=== PATIENT | female | born 1990 | race Two or more races ===

== ENCOUNTER 2016-11-30 19:15 | Emergency (ER) | payer OTHER ==
[~2016-11-30] VITALS: Ht 165.1 cm; Wt 81.6 kg
[2016-12-01 00:10] VITALS: BP 149/95
[2016-12-01] MEDS ORDERED: IBUPROFEN 400 MG TAB PO ONE (01:00)
== END 2016-12-01 00:47 | disposition home or self-care (01) ==
LOC: ER 19:26
DX: S60.031A Contusion of right middle finger without damage to nail, initial encounter (principal); W23.0XXA Caught, crushed, jammed, or pinched between moving objects, initial encounter; Y93.89 Activity, other specified; Y92.89 Other specified places as the place of occurrence of the external cause; Y99.0 Civilian activity done for income or pay
CPT/HCPCS: 29130; 73130

== ENCOUNTER 2019-04-28 19:24 | Emergency (ER) | payer MEDICAID, OTHER ==
[~2019-04-28] VITALS: Ht 167.6 cm; Wt 97.5 kg
[2019-04-28 21:14] LABS: Urine WBC None Seen /hpf (0 - 5)
[2019-04-28 21:23] LABS: Basophils # (auto) 0.1 uL; Basophils % (auto) 0.7 % (0.0-2.0); Eosinophils # (auto) 0.2 uL; Eosinophils % (auto) 1.4 % (0.0-7.0); Hemoglobin 13.6 g/dL (12.2-16.2); Lymphocytes # (auto) 2.3 uL; Lymphocytes % (auto) 21.1 % (10.0-50.0); Mean Corpuscular Hemoglobin 30.4 pg (28.0-32.0); Mean Corpuscular Hgb Conc. 33.9 g/dL (32.0-36.0); Mean Corpuscular Volume 89.7 fL (80.0-100.0); Monocytes # (auto) 0.6 uL; Neutrophils % (auto) 71.8 % (37.0-80.0); Platelet Count (auto) 315 10^3/uL (140-450); Red Blood Cells 4.46 10^6/uL (4.0-5.20); Red Cell Distribution Width 12.5 % (11.8-14.3); White Blood Cell 11.1 10^3/uL (4.4-10.8)
[2019-04-28 21:26] LABS: Urine Bacteria NONE SEEN /hpf (None Seen); Urine Blood Negative /uL (Negative); Urine Specific Gravity 1.023 (1.001-1.035)
[2019-04-28 21:36] LABS: Albumin 3.5 g/dL (3.4-5.0); BUN/Creatinine Ratio 15.4; Calcium 8.5 mg/dL (8.5-10.1); Potassium 3.4 mmol/L (3.5-5.1)
[2019-04-28 21:38] LABS: Alcohol, Urine < 3.0 mg/dL (0-5); Amphetamine Screen, Urine NEGATIVE (NEGATIVE); Barbiturate Scree,Urine NEGATIVE (NEGATIVE); Benzodiazephine Screen, Urine NEGATIVE (NEGATIVE); Cannabinoid Screen, Urine NEGATIVE (NEGATIVE); Cocaine Screen, Urine NEGATIVE (NEGATIVE); Opiate Scree,Urine NEGATIVE (NEGATIVE); Phencyclidine Screen, Urine NEGATIVE (NEGATIVE)
[2019-04-28 21:47] LABS: Bilirubin, Total 0.3 mg/dL (0.2-1.0); Total Protein 7.8 g/dL (6.4-8.2)
[2019-04-28] MEDS ORDERED: HYDROcodone-ACET 5/325MG TAB PO ONE (22:00)
[2019-04-28 22:22] VITALS: BP 139/85
== END 2019-04-28 22:25 | disposition home or self-care (01) ==
LOC: ER 19:24
DX: N20.0 Calculus of kidney (principal); K59.00 Constipation, unspecified
CPT/HCPCS: 36415; 74176; 80053; 80307; 81001; 81025; 82150; 83690; 85025

== ENCOUNTER 2021-06-17 19:20 | Emergency (ER) | payer BC, MEDICAID, OTHER ==
[~2021-06-17] VITALS: Ht 172.7 cm; Wt 90.7 kg
[2021-06-17] MEDS ORDERED: diazePAM 5 MG TAB PO ONE (21:00)
[2021-06-17] MEDS ORDERED: MORPHINE SULFATE 4 MG/ML SYR/VIAL IM ONE (21:00)
[2021-06-17] MEDS ORDERED: MORPHINE SULFATE INJECTION 2 MG/ML SYRG IM ONE (21:15)
[2021-06-17 22:00] VITALS: BP 154/100
== END 2021-06-17 22:45 | disposition home or self-care (01) ==
LOC: EDBD 19:20 → ER 19:25
DX: S16.1XXA Strain of muscle, fascia and tendon at neck level, initial encounter (principal); S20.212A Contusion of left front wall of thorax, initial encounter; S30.0XXA Contusion of lower back and pelvis, initial encounter; S83.91XA Sprain of unspecified site of right knee, initial encounter; S50.11XA Contusion of right forearm, initial encounter; R51.9 Headache, unspecified; V43.52XA Car driver injured in collision with other type car in traffic accident, initial encounter; Y93.89 Activity, other specified; Y92.410 Unspecified street and highway as the place of occurrence of the external cause; Y99.8 Other external cause status
CPT/HCPCS: 70450; 71250; 72125; 73090; 74176; 93005; 96372; 99285; J2270

== ENCOUNTER 2022-05-09 07:22 | Emergency (ER) | payer BC, MEDICAID ==
[~2022-05-09] VITALS: Ht 165.1 cm; Wt 97.5 kg
[2022-05-09] MEDS ORDERED: SODIUM CHLORIDE 0.9% 1,000 ML IVB ONE (08:30)
[2022-05-09] MEDS ORDERED: METOCLOPRAMIDE HCL 5MG/ml INJ 2ml VIAL IV ONE ×2 (08:30→12:45)
[2022-05-09] MEDS ORDERED: MORPHINE SULFATE 4 MG/ML SYR/VIAL IV ONE (08:30)
[2022-05-09 08:56] LABS: Basophils # (auto) 0 10 ^3/uL (0-0.2); Basophils % (auto) 0.2 % (0.0-2.0); Eosinophils # (auto) 0 10 ^3/uL (0-0.8); Hematocrit 41.5 % (36.0-46.0); Hemoglobin 13.8 g/dL (12.2-16.2); Lymphocytes # (auto) 1.4 10 ^3/uL (0.4-5.4); Lymphocytes % (auto) 8.9 % (10.0-50.0); Mean Corpuscular Hemoglobin 29.4 pg (28.0-32.0); Mean Corpuscular Hgb Conc. 33.3 g/dL (32.0-36.0); Mean Corpuscular Volume 88.2 fL (80.0-100.0); Monocytes # (auto) 0.4 10 ^3/uL (0-1.3); Monocytes % (auto) 2.2 % (0.0-12.0); Neutrophils # (auto) 13.9 10 ^3/uL (1.6-8.6); Neutrophils % (auto) 88.7 % (37.0-80.0); Red Cell Distribution Width 13.9 % (11.8-14.3); White Blood Cell 15.6 10^3/uL (4.4-10.8)
[2022-05-09 09:54] LABS: Albumin 4.3 g/dL (3.4-5.0); Calcium 9.9 mg/dL (8.5-10.1); Potassium 3.3 mmol/L (3.5-5.1)
[2022-05-09 10:00] LABS: BUN/Creatinine Ratio 8.7; Bilirubin, Total 0.6 mg/dL (0.2-1.0); Total Protein 10.2 g/dL (6.4-8.2)
[2022-05-09 10:32] LABS: INR 0.97 (0.9-1.15); Partial Thromboplastin Time 23.7 sec (24.6-33.4)
[2022-05-09] MEDS ORDERED: MORPHINE SULFATE INJ 2 MG/ml SYRG IV ONE ×2 (12:45→16:00)
[2022-05-09] MEDS ORDERED: ONDANSETRON HCL 4 MG/2 ML VIAL IV ONE (16:00)
[2022-05-09] MEDS ORDERED: diphenhdrAMINE HCL 50 MG/1 ML VL ONE (16:53)
[2022-05-09] MEDS ORDERED: diphenhdrAMINE HCL 50 MG/1 ML VL IV ONE (17:00)
[2022-05-09] MEDS ORDERED: POTASSIUM EFFERVESENT TAB 25 MEQ PO ONE ×2 (17:30)
[2022-05-09] MEDS ORDERED: ONDA-144 PO (18:22)
[2022-05-09] MEDS ORDERED: TRAM50TA2 PO (18:22)
[2022-05-09 18:57] VITALS: BP 137/86
== END 2022-05-09 19:25 | disposition home or self-care (01) ==
LOC: ER 07:22
DX: R10.84 Generalized abdominal pain (principal); E87.6 Hypokalemia; N28.9 Disorder of kidney and ureter, unspecified; K59.01 Slow transit constipation; K80.50 Calculus of bile duct without cholangitis or cholecystitis without obstruction; I10 Essential (primary) hypertension; Z20.822 Contact with and (suspected) exposure to COVID-19
CPT/HCPCS: 36415; 74176; 80053; 82150; 83690; 83735; 84443; 85025; 85610; 85730; 87426; 96361; 96374; 96375; 96376; 99285; J1200; J2270; J2405; J2765; J7030